=== PATIENT | female | born 1960 | race Caucasian/White ===

== ENCOUNTER 2017-02-17 00:15 | Emergency (ER) | payer OTHER ==
[~2017-02-17] VITALS: Ht 152.4 cm; Wt 77.1 kg
[2017-02-17 00:38] VITALS: BP 152/78
[2017-02-17] MEDS ORDERED: ALBUTEROL SULFATE/IPRATROPIU 3 ML SOL IH ONE (00:50)
--- NOTE | 2017-02-17 01:10 | NUR ---
BRET/RN AT BEDSIDE BOAT HOP TO ATTEMPT HHN THERAPY RELL LATER TIME
--- NOTE | 2017-02-17 01:10 | NUR ---
PT TAKEN TO BED 8
--- NOTE | 2017-02-17 01:11 | NUR ---
Dr. De Luna evaluating patient at bedside.
--- NOTE | 2017-02-17 01:17 | NUR ---
Respiratory Therapist at bedside for respiratory intervention.
--- NOTE | 2017-02-17 01:18 | NUR ---
ADMITTING DX: DIFFICULTY BREATHING HX: ASTHMA AWAKE AND ALERT RESPONSIVE TO [employer] SYSTEMS ARCHITECT VERBAL COMMANDS DAUGHTER MASTER AT BEDSIDE PATIENT IN [facility] POSITION EDUCATION PROVIDED TO PATIENT AND DAUGHTER WITH ACKNOWLEDGEMENT ON HHN THERAPY AND RESPIRATORY DRUG HHN THERAPY GIVEN ORDERED ENCOURAGED PATIENT FOR DEEP BREATHING DURING THERAPY TOLERATED WELL WITHOUT ADVERSE REACTIONS NOTED
--- NOTE | 2017-02-17 01:24 | NUR ---
56Y/F PT. BIB TO ED WITH C/O SOB X 8 HRS. PT. HX. ASTHMA, HAVING SOB SINCE 1699, NO FEVER. AAO X4, AMBULATORY WITH STEADY GAIT, REPIRATIONS ROOM AIR, EVEN AND UNLABORED, BL WHEEZES, O2 SAT 99-100%. SKIN WARM AND DRY. C/O CHEST TIGHNESS 03/19. VSS, ER MADE AWARE OF PT. STATUS AT THIS TIME.
[2017-02-17] MEDS ORDERED: methylPREDNISolone SS 125 MG in WATER STERILE 2 ML IV ONE (01:25)
--- NOTE | 2017-02-17 01:57 | NUR ---
X-Ray at bedside.
[2017-02-17 03:00] VITALS: BP 135/83
[2017-02-17] MEDS ORDERED: PHENYLEPHRINE 0.5% 15 ML BTL NS ONE (03:00)
--- NOTE | 2017-02-17 03:00 | NUR ---
Patient discharged with v/s stable. Written and verbal after care instructions given and explained. Patient alert, oriented and verbalized understanding of instructions. Ambulatory with steady gait. All questions addressed prior to discharge. ID band removed. Patient advised to follow up with PMD. Rx of AZITHROMYCIN 250MG, PREDNISONE 50MG DAILY, ALBUTEROL 90MCG given. Patient educated on indication of medication including possible reaction and side effects. Opportunity to ask questions provided and answered.
== END 2017-02-17 03:00 | disposition home or self-care (01) ==
LOC: MED 00:15
DX: J45.901 Unspecified asthma with (acute) exacerbation (principal); J20.9 Acute bronchitis, unspecified
CPT/HCPCS: 36415; 71010; 84484; 93005; 94640; 96374; 99284; J2930; J7620; Q0092

== ENCOUNTER 2017-02-23 17:47 | Emergency (ER) | payer OTHER ==
[~2017-02-23] VITALS: Ht 152.4 cm; Wt 76.2 kg
[2017-02-23 18:02] VITALS: BP 115/70
[2017-02-23] MEDS ORDERED: ACETAMINOPHEN 325 MG TAB PO ONE (18:20)
--- NOTE | 2017-02-23 19:55 | NUR ---
56Y/F PT. PRESENTS TO ED WITH C/O HEAD INJURY S/P FALL HIT HER HEAD ON DRAWER HANDLE 03/19, LEFT SHOULDER PAIN, DIZZY, DENIES N/V/D . HX; ASTHMA, DM, HTN. Addendum: 02/23/17 at 2241 by MED PT. ALERT AND ORIENTED X 4, AMBULATORY WITH STEADY GAIT. NO S/SX OF DISTRESS AT THIS TIME. VSS, SINCERE ESPINAL MADE AWARE OF PT. STATUS.
--- NOTE | 2017-02-23 20:00 | NUR ---
Patient discharged with v/s stable. Written and verbal after care instructions given and explained. Patient alert, oriented and verbalized understanding of instructions. Ambulatory with steady gait. All questions addressed prior to discharge. ID band removed. Patient advised to follow up with PMD. Rx of NAPROSYN 375 MG given. Patient educated on indication of medication including possible reaction and side effects. Opportunity to ask questions provided and answered.
[2017-02-23 20:05] VITALS: BP 120/80
== END 2017-02-23 20:00 | disposition home or self-care (01) ==
LOC: MED 17:47
DX: S09.90XA Unspecified injury of head, initial encounter (principal); M62.830 Muscle spasm of back; J45.909 Unspecified asthma, uncomplicated; E11.9 Type 2 diabetes mellitus without complications; I10 Essential (primary) hypertension; W22.03XA Walked into furniture, initial encounter; Y93.89 Activity, other specified; Y92.89 Other specified places as the place of occurrence of the external cause; Y99.8 Other external cause status
CPT/HCPCS: 70450; 82948; 99284

== ENCOUNTER 2017-12-12 01:04 | Emergency (ER) | payer OTHER ==
[~2017-12-12] VITALS: Ht 149.9 cm; Wt 80.9 kg
[2017-12-12 01:08] VITALS: BP 159/89
--- NOTE | 2017-12-12 01:14 | NUR ---
PT.AMBULATED TO ER BED 2
[2017-12-12] MEDS ORDERED: LACTULOSE 20 GM/30 ML UDC PO ONE (01:25)
[2017-12-12] MEDS ORDERED: KETOROLAC 60 MG/2 ML VIAL IM ONE (01:25)
[2017-12-12] MEDS ORDERED: cefTRIAXone 1,000 MG in LIDOCAINE 1% ***ER ONLY *** 2.1 ML IM ONE (01:35)
--- NOTE | 2017-12-12 01:35 | NUR ---
57/F C/O LUQ ABDOMINAL PAIN X 3 WKS. HX. ASTHMA, DM, HTNDENIES N/V/D; SKIN IS PINK/WARM/DRY; AAOX4 WITH EVEN AND STEADY GAIT; LUNGS CLEAR BL; HR EVEN AND REGULAR; PT DENIES ANY FEVER, CP, SOB, OR COUGH AT THIS TIME; VSS; PATIENT POSITIONED FOR COMFORT; HOB ELEVATED; BEDRAILS UP X2; BED DOWN. ER MD MADE AWARE OF PT STATUS.
[2017-12-12] MEDS ORDERED: cefTRIAXone 1,000 MG VIAL ONE (01:44)
[2017-12-12] MEDS ORDERED: LIDOCAINE MPF 1% - **ER/OR** 5 ML ONE (01:45)
[2017-12-12 01:53] LABS: APPEARANCE,URINE CLEAR (CLEAR); BILIRUBIN,URINE NEGATIVE (NEGATIVE); BLOOD, URINE TRACE-I (NEGATIVE); COLOR,URINE YELLOW (YELLOW); LEUKOCYTE ESTERASE ,URINE NEGATIVE (NEGATIVE); NITRITE, URINE NEGATIVE (NEGATIVE); UGLUCOSE NEGATIVE (NEGATIVE)
[2017-12-12 02:07] LABS: RBC,URINE 0-5 (RARE) /HPF (0-5); WBC,URINE 0-5 (RARE) /HPF (0-5)
--- NOTE | 2017-12-12 02:20 | NUR ---
Patient discharged with v/s stable. Written and verbal after care instructions given and explained. Patient alert, oriented and verbalized understanding of instructions. Ambulatory with steady gait. All questions addressed prior to discharge. ID band removed. Patient advised to follow up with PMD. Rx of LEVSIN AND LEVAQUIN given. Patient educated on indication of medication including possible reaction and side effects. Opportunity to ask questions provided and answered.
[2017-12-12 02:24] VITALS: BP 134/72
== END 2017-12-12 02:20 | disposition home or self-care (01) ==
LOC: MED 01:04
DX: N39.0 Urinary tract infection, site not specified (principal); K57.90 Diverticulosis of intestine, part unspecified, without perforation or abscess without bleeding; R10.12 Left upper quadrant pain
CPT/HCPCS: 74021; 81001; 81025; 87086; 96372; 99285; J0696; J1885; J2001

== ENCOUNTER 2018-05-14 02:25 | Emergency (ER) | payer OTHER ==
[~2018-05-14] VITALS: Ht 152.4 cm; Wt 77.1 kg
[2018-05-14 02:30] VITALS: BP 150/87
--- NOTE | 2018-05-14 02:30 | NUR ---
PATIENT AMBULATED TO ER BED 9.
--- NOTE | 2018-05-14 02:47 | NUR ---
PT BIB SELF FOR ABD PAIN FOR PAST 5 DAYS. ABD IS ROUND, SOFT, ACTIVE BS X4, NON TENDER. PT DENIES N/V/D. PT LAYING IN BED, FAMILY MEMBER AT BEDSIDE. PMH ASTHMA
[2018-05-14] MEDS ORDERED: PHENAZOPYRIDINE 100 MG TAB PO ONE (02:50)
[2018-05-14] MEDS ORDERED: cefTRIAXone 1,000 MG in LIDOCAINE MPF 1% - 5 mL VIAL 2.1 ML IM ONE (02:50)
[2018-05-14] MEDS ORDERED: KETOROLAC 30 MG/ML VIAL IM ONE (02:55)
[2018-05-14 03:30] VITALS: BP 131/84
--- NOTE | 2018-05-14 03:30 | NUR ---
Patient discharged with v/s stable. Written and verbal after care instructions given and explained. Patient alert, oriented and verbalized understanding of instructions. Ambulatory with steady gait. All questions addressed prior to discharge. ID band removed. Patient advised to follow up with PMD. Rx of cipro, motrin, pyridium given. Patient educated on indication of medication including possible reaction and side effects. Opportunity to ask questions provided and answered.
== END 2018-05-14 03:30 | disposition home or self-care (01) ==
LOC: MED 02:25
DX: N39.0 Urinary tract infection, site not specified (principal); J45.909 Unspecified asthma, uncomplicated; E11.9 Type 2 diabetes mellitus without complications; I10 Essential (primary) hypertension
CPT/HCPCS: 81002; 87086; 96372; 99284; J0696; J1885; J2001

== ENCOUNTER 2018-09-27 16:55 | Emergency (ER) | payer OTHER ==
[~2018-09-27] VITALS: Ht 162.6 cm; Wt 77.1 kg
[2018-09-27 17:39] VITALS: BP 20/100
--- NOTE | 2018-09-27 17:49 | NUR ---
HAND ON URINE CUP
--- NOTE | 2018-09-27 20:44 | NUR ---
PT AMBULATED TO BED 08.
[2018-09-27] MEDS ORDERED: methylPREDNISolone SS 125 MG/2 ML VIAL IM ONE (21:05)
[2018-09-27] MEDS ORDERED: diphenhydrAMINE 50 MG/ML VIAL IM ONE (21:05)
--- NOTE | 2018-09-27 21:25 | NUR ---
PT BIB C/O RASHES WHOLE BODY X 4 DAYS. FEEL ITCHING . BLOOD SUGAR 140 AT HOME THIS AM. DENIES SOB OR CHEST PAIN.DENIES N/V/D; SKIN IS PINK/WARM/DRY; AAOX4 WITH EVEN AND STEADY GAIT; LUNGS CLEAR BL; HR EVEN AND REGULAR; PATIENT STATES PAIN OF 0/10 AT THIS TIME; VSS; PATIENT POSITIONED FOR COMFORT; HOB ELEVATED; BEDRAILS UP X2; BED DOWN. ER MD MADE AWARE OF PT STATUS. MED HX : HTN, DM MED: MONTELUKAST, METFOMIN,LISINOPRIL
[2018-09-27 22:06] VITALS: BP 155/69
--- NOTE | 2018-09-27 22:06 | NUR ---
Patient discharged with v/s stable. Written and verbal after care instructions given and explained. Patient alert, oriented and verbalized understanding of instructions. Ambulatory with steady gait. All questions addressed prior to discharge. ID band removed. Patient advised to follow up with PMD. Rx of BENADRYL AND PREDNISONE given. Patient educated on indication of medication including possible reaction and side effects. Opportunity to ask questions provided and answered.
== END 2018-09-27 22:06 | disposition home or self-care (01) ==
LOC: MED 16:55
DX: L25.9 Unspecified contact dermatitis, unspecified cause (principal); J45.909 Unspecified asthma, uncomplicated; E11.9 Type 2 diabetes mellitus without complications; I10 Essential (primary) hypertension
CPT/HCPCS: 96372; 99283; J1200; J2930

== ENCOUNTER 2019-01-05 08:56 | Emergency (ER) | payer OTHER ==
[~2019-01-05] VITALS: Ht 149.9 cm; Wt 80.9 kg
[2019-01-05 09:17] VITALS: BP 149/84
--- NOTE | 2019-01-05 09:21 | NUR ---
Patient being evaluated by DR RODRIGUEZ at bedside.
[2019-01-05] MEDS ORDERED: KETOROLAC 30 MG/ML VIAL IM ONE (09:30)
--- NOTE | 2019-01-05 09:39 | NUR ---
BIB DAUGHTER W/ C/O LEFT LOWER BACK PAIN RADIATES TO THE LEFT LOWER ABDOMEN X 15 DAYS W/ DIZZINESS, NAUSEA, LOSS OF APPETITE AND SOB TODAY. DENIES VOMITING OR DIARRHEA. PT ALSO C/O OF 6/10 LEFT EAR PAIN AND 9/10 HEADCHE. LEFT EAR INSPECTED NO EDEMA OR ERYTHYMA WITH MEMBRANE INTACT. DENIES VOMITING OR DIARRHEA; SKIN IS PINK/WARM/DRY; AAOX4 WITH EVEN AND STEADY GAIT; LUNGS CLEAR BL; HR EVEN AND REGULAR; PT DENIES ANY FEVER, CP, OR COUGH AT THIS TIME; PATIENT STATES PAIN OF LEFT LOWER BACK AND ABDOMEN PAIN 05/19 AT THIS TIME; VSS; PATIENT POSITIONED FOR COMFORT; HOB ELEVATED; BEDRAILS UP X2; BED DOWN. ER MD MADE AWARE OF PT STATUS. DAUGHTER IS AT BEDSIDE.
[2019-01-05 09:46] LABS: BASOPHILS % (AUTO) 0.6 % (0.0-2.0); EOSINOPHILS # (AUTO) 0.3 K/uL (0-0.4); EOSINOPHILS % (AUTO) 3.1 % (0.0-4.0); HEMATOCRIT 33.1 % (36-48); HEMOGLOBIN 10.9 g/dL (12.0-16.0); LYMPHOCYTES # (AUTO) 2.4 K/uL (2.5-16.5); LYMPHOCYTES % (AUTO) 28.7 % (20.5-51.1); MEAN CORPUSCULAR HEMOGLOBIN 30 pg (27-31); MEAN CORPUSCULAR HGB CONC 33 g/dL (33-37); MEAN CORPUSCULAR VOLUME 91.8 fL (80-94); MONOCYTES # (AUTO) 0.8 K/uL (0.8-1.0); MONOCYTES % (AUTO) 9.8 % (1.7-9.3); NEUTROPHILS # (AUTO) 4.7 K/uL (1.8-7.7); NEUTROPHILS % (AUTO) 57.8 % (42.2-75.2); PLATELET COUNT (AUTO) 463 K/uL (140-450); RED BLOOD CELL COUNT(AUTO) 3.61 MIL/uL (4.20-5.40); RED CELL DISTRIBUTION WIDTH 13.9 % (11.6-13.7); WHITE BLOOD COUNT (AUTO) 8.2 K/uL (4.8-10.8)
[2019-01-05 09:47] LABS: APPEARANCE,URINE CLEAR (CLEAR); BILIRUBIN,URINE NEGATIVE (NEGATIVE); BLOOD, URINE TRACE-L (NEGATIVE); COLOR,URINE YELLOW (YELLOW); LEUKOCYTE ESTERASE ,URINE NEGATIVE (NEGATIVE); NITRITE, URINE NEGATIVE (NEGATIVE); UGLUCOSE NEGATIVE (NEGATIVE)
[2019-01-05 09:57] LABS: RBC,URINE 0-5 /HPF (0-5); WBC,URINE 0-5 /HPF (0-5)
[2019-01-05 09:57] LABS: ANION GAP 12.7 (8-16); CARBON DIOXIDE 26.8 mmol/L (21-32); CREATININE 0.7 mg/dL (0.6-1.3); POTASSIUM 4.5 mmol/L (3.5-5.1)
[2019-01-05 10:04] LABS: ALBUMIN 3.5 g/dL (3.4-5.0); TOTAL BILIRUBIN 0.1 mg/dL (0.0-1.0)
--- NOTE | 2019-01-05 10:06 | NUR ---
PT CAME BACK FROM CT SCAN. BP 137/75, HR 101. PT STATES HER LEFT LOWER BACK PAIN IS 9/10, LEFT EAR PAIN 6/10, AND 9/10 HEADACHE.
[2019-01-05 11:02] VITALS: BP 130/71
--- NOTE | 2019-01-05 11:02 | NUR ---
Patient discharged with v/s stable. Written and verbal after care instructions given and explained. Patient alert, oriented and verbalized understanding of instructions. Ambulatory with steady gait. All questions addressed prior to discharge. ID band removed. Patient advised to follow up with PMD. Rx of Lynn, Flexeril, and Ibuprofen given. Patient educated on indication of medication including possible reaction and side effects. Opportunity to ask questions provided and answered.
== END 2019-01-05 11:02 | disposition home or self-care (01) ==
LOC: MED 08:56
DX: M54.5 Low back pain (principal); J45.909 Unspecified asthma, uncomplicated; E11.9 Type 2 diabetes mellitus without complications; I10 Essential (primary) hypertension
CPT/HCPCS: 36415; 74176; 80053; 81001; 85025; 96372; 99284; J1885

== ENCOUNTER 2021-04-23 17:44 | Emergency (ER) | payer OTHER ==
[~2021-04-23] VITALS: Ht 149.9 cm; Wt 68.0 kg
[2021-04-23 18:28] VITALS: BP 147/78
--- NOTE | 2021-04-23 18:35 | NUR ---
SARAH. HANDED ON URINE CUP.
[2021-04-23 19:36] LABS: APPEARANCE,URINE CLEAR (CLEAR); BILIRUBIN,URINE NEGATIVE (NEGATIVE); BLOOD, URINE 1+ (NEGATIVE); COLOR,URINE YELLOW (YELLOW); LEUKOCYTE ESTERASE ,URINE NEGATIVE (NEGATIVE); NITRITE, URINE NEGATIVE (NEGATIVE); PH,URINE 5.5 (5.0-9.0); UGLUCOSE NEGATIVE (NEGATIVE)
[2021-04-23 19:42] LABS: WBC,URINE 0-5 /HPF (0-5)
[2021-04-23 21:18] LABS: BASOPHILS # (AUTO) 0.1 K/uL (0.00-0.22); EOSINOPHILS # (AUTO) 0.2 K/uL (0-0.4); EOSINOPHILS % (AUTO) 1.8 % (0.0-4.0); HEMATOCRIT 34.9 % (36-48); HEMOGLOBIN 11.2 g/dL (12.0-16.0); LYMPHOCYTES # (AUTO) 3.1 K/uL (2.5-16.5); LYMPHOCYTES % (AUTO) 23.1 % (20.5-51.1); MEAN CORPUSCULAR HEMOGLOBIN 27 pg (27-31); MEAN CORPUSCULAR HGB CONC 32 g/dL (33-37); MEAN CORPUSCULAR VOLUME 84.3 fL (80-94); MONOCYTES # (AUTO) 1.2 K/uL (0.8-1.0); MONOCYTES % (AUTO) 8.5 % (1.7-9.3); NEUTROPHILS # (AUTO) 8.9 K/uL (1.8-7.7); NEUTROPHILS % (AUTO) 65.6 % (42.2-75.2); PLATELET COUNT (AUTO) 529 K/uL (140-450); RED BLOOD CELL COUNT(AUTO) 4.14 MIL/uL (4.20-5.40); RED CELL DISTRIBUTION WIDTH 16.9 % (11.6-13.7); WHITE BLOOD COUNT (AUTO) 13.5 K/uL (4.8-10.8)
[2021-04-23 21:35] LABS: ANION GAP 16.7 (8-16); CARBON DIOXIDE 23.8 mmol/L (21-32); CREATININE 0.8 mg/dL (0.6-1.3); POTASSIUM 4.5 mmol/L (3.5-5.1); TOTAL BILIRUBIN 0.2 mg/dL (0.0-1.0)
[2021-04-23] MEDS ORDERED: ACET-10509 PO (22:35)
--- NOTE | 2021-04-23 23:00 | NUR ---
SEEN BY ERMD NO NURSING INTERVENTIONS NEEDED BY THE PATIENT.
[2021-04-23 23:08] VITALS: BP 147/78
--- NOTE | 2021-04-23 23:08 | NUR ---
Patient discharged with v/s stable. Written and verbal after care instructions given and explained. Patient alert, oriented and verbalized understanding of instructions. Ambulatory with steady gait. All questions addressed prior to discharge. ID band removed. Patient advised to follow up with PMD. Rx of TYLENOL EXTRA STRENGTH TAB given. Patient educated on indication of medication including possible reaction and side effects. Opportunity to ask questions provided and answered.
--- NOTE | 2021-04-23 23:09 | NUR ---
USED CATHETERIZATION LABORATORY TECHNICIAN FOR D/C OF PATIENT #[id number]
== END 2021-04-23 23:08 | disposition home or self-care (01) ==
LOC: MED 17:44
DX: D47.3 Essential (hemorrhagic) thrombocythemia (principal); R31.9 Hematuria, unspecified; J45.909 Unspecified asthma, uncomplicated; E11.9 Type 2 diabetes mellitus without complications; I10 Essential (primary) hypertension
CPT/HCPCS: 36415; 80053; 81001; 85025; 99284